=== PATIENT | male | born 1980 | race Two or more races ===

== ENCOUNTER 2018-02-09 07:36 | Emergency (ER) | payer SELFPAY ==
[2018-02-09] MEDS ORDERED: DEXAMETHASONE SOD PHOS INJ 10 MG/1 ML VIAL IM ONE (07:57)
--- NOTE | 2018-02-09 08:00 | ER Document Report ---
HPI - HPI Time Seen by Provider: 02/09/18 07:50 Pain Level: 3 Notes: Patient is a 37-year-old male with no significant past medical history who presents to the ED complaining of subjective fever and a sore throat that started yesterday morning. Patient states that he has been getting over a recent illness with cough and nasal congestion. Patient states that those symptoms have greatly improved and are almost resolved when his sore throat started. Denies any drug allergies. He is still able to eat and drink, but does have a decreased p.o. intake because of the discomfort. He is urinating normally and having normal bowel movements. Denies drug allergies. Patient does admit to smoking. Denies any headache, neck pain, changes in vision/speech/mentation/hearing, hoarseness, drooling, chest pain, palpitations, syncope, shortness of breath, wheeze, dyspnea, abdominal pain, nausea/vomiting/diarrhea, urinary retention, dysuria, hematuria, or rash. - ROS Systems Reviewed and Negative: Yes All other systems reviewed and negative - REPRODUCTIVE Reproductive: DENIES: : Past Medical History - Social History Smoking Status: Current Every Day Smoker Family History: Reviewed & Not Pertinent Vertical Provider Document - CONSTITUTIONAL Agree With Documented VS: Yes Notes: PHYSICAL EXAMINATION: GENERAL: Well-appearing, well-nourished and in no acute distress. A&Ox4. Answers questions appropriately. Moves comfortably w/o notable distress HEAD: Atraumatic, normocephalic. EYES: Pupils equal round and reactive to light, extraocular movements intact, sclera anicteric, conjunctiva are normal. ENT: EAC clear b/l. TM's intact b/l without erythema, fluid, or perforation. Nares patent and with clear discharge. oropharynx mild erythema without exudates. 2+ tonsilar hypertrophy b/l witht erythema and scant exudate. No palatine shift. Uvula midline. No tongue protrusion. No drooling, hoarseness, or airway compromise. Moist mucous membranes. No sinus tenderness. NECK: Normal range of motion, supple without lymphadenopathy. No rigidity/meningismus. LUNGS: Breath sounds clear to auscultation bilaterally and equal. No wheezes rales or rhonchi. No retractions HEART: Regular rate and rhythm without murmurs, rubs, gallops. ABDOMEN: Soft, nontender, nondistended abdomen. No guarding, no rebound. No masses appreciated. Normal bowel sounds present. No CVA tenderness bilaterally. No hepatosplenomegaly. NEUROLOGICAL: Normal speech, normal gait. Normal sensory, motor exams PSYCH: Normal mood, normal affect. SKIN: Warm, Dry, normal turgor, no rashes or lesions noted. - INFECTION CONTROL TRAVEL OUTSIDE OF THE [place] IN LAST 30 DAYS: No Course - Re-evaluation Re-evalutation: 02/09/18 08:30 Patient is an afebrile, well-hydrated, 37-year-old male who presents to the ED with acute strep pharyngitis. Vitals are acceptable without any significant tachycardia, tachypnea, or hypoxia. PE is otherwise unremarkable. Patient is nontoxic-appearing and is able to tolerate p.o. without difficulty. Decadron IM was given. Rapid strep was positive. Lungs are otherwise clear to auscultation bilaterally. No further labs or imaging warranted at this time. Low suspicion for any meningitis, sepsis, peritonsillar/pharyngeal abscess, respiratory compromise, Dylon's, or other emergent systemic condition at this time. Patient is aware this condition can change from initial presentation and he needs to monitor symptoms closely. I will send him home with a prescription for penicillin. Conservative measures otherwise for symptoms. Recheck with your PCM in 3-5 days. Consider consult with ENT. Return to the ED with any worsening/concerning symptoms otherwise as reviewed in discharge. Patient is in agreement. - Vital Signs Vital signs: Temp Pulse Resp BP Pulse Ox 99.8 F 91 16 136/86 H 97 02/09/18 07:42 02/09/18 07:42 02/09/18 07:42 02/09/18 07:42 02/09/18 07:42 Discharge - Discharge Clinical Impression: Acute streptococcal pharyngitis Condition: Stable Disposition: HOME, SELF-CARE Instructions: Penicillin V K ([facility]), Strep Throat ([facility]), Upper Respiratory Illness ([facility]) Additional Instructions: Maintain adequate fluid intake Take meds as directed Salt water gargles, throat sprays, mouthwash rinse, peroxide gargles tylenol/ibuprofen as needed New toothbrush tomorrow evening over the counter cold medication as needed for symptoms F/u: with your PCM in 3-5 days for a recheck Consider consult with ENT for ongoing/worsening symptoms Return to the ED with any fever, worsening pain, chest pain, neck pain/stiffness, shortness of breath, cough, drooling, trouble swallowing/breathing, abdominal pain, n/v/d, rash, or worsening/concerning symptoms otherwise. Prescriptions: Penicillin V Potassium [Penicillin Vk 500 mg Tablet] 500 mg PO TID #30 tablet Forms: Elevated Blood Pressure, Smoking Cessation Education Referrals: KONG FERNANDEZ DO [ASSOCIATE] - Follow up as needed
[2018-02-09 08:58] VITALS: BP 132/88
== END 2018-02-09 08:58 | disposition home or self-care (01) ==
LOC: ER 07:36
DX: J02.0 Streptococcal pharyngitis (principal); F17.210 Nicotine dependence, cigarettes, uncomplicated
CPT/HCPCS: 99283; 96372; 87880; J1100

== ENCOUNTER 2018-02-22 19:39 | Emergency (ER) | payer SELFPAY ==
[2018-02-22 21:22] LABS: ABSOLUTE BASOPHILS # (AUTO) 0.1 10^3/uL (0.0-0.2); ABSOLUTE EOSINOPHILS # (AUTO) 0.4 10^3/uL (0.0-0.6); ABSOLUTE LYMPHOCYTES (AUTO) 2.1 10^3/uL (0.5-4.7); ABSOLUTE MONOCYTES (AUTO) 0.8 10^3/uL (0.1-1.4); ABSOLUTE NEUT (AUTO) 5.2 10^3/uL (1.7-8.2); EOSINOPHILS % (AUTO) 4.5 % (0-6); HEMATOCRIT 37.1 % (37.9-51.0); HEMOGLOBIN 12.9 g/dL (13.5-17.0); LYMPHOCYTES % (AUTO) 24.4 % (13-45); MEAN CORPUSCULAR HEMOGLOBIN 30.7 pg (27.0-33.4); MEAN CORPUSCULAR HGB CONC 34.7 g/dL (32.0-36.0); MEAN CORPUSCULAR VOLUME 89 fl (80-97); MONOCYTES % (AUTO) 9.1 % (3-13); PLATELET COUNT 249 10^3/uL (150-450); RED BLOOD COUNT 4.18 10^6/uL (4.35-5.55); RED CELL DISTRIBUTION WIDTH 13.1 % (11.5-14.0); TOTAL CELLS COUNTED % (AUTO) 100 %; WHITE BLOOD COUNT 8.6 10^3/uL (4.0-10.5)
--- NOTE | 2018-02-22 21:32 | ER Document Report ---
ED General - General Chief Complaint: Chest Wall Pain Stated Complaint: PAINFUL COUGH Time Seen by Provider: 02/22/18 20:57 Notes: Patient is a 37-year-old male that comes to the emergency department for chief complaint of pain in his chest. He states he has had pain started on the left side and also began hurting on the right side since yesterday. He states it is somewhat worse to move, hurts to take a deep breath, hurts if he coughs. He denies any consistent cough. He denies shortness of breath. He denies fever. He does smoke. He denies any daily medications. He states he was treated for strep throat at the end of last month. He denies illness otherwise. Denies personal or family history of cardiac disease. at bedside. TRAVEL OUTSIDE OF THE [place] IN LAST 30 DAYS: No - Related Data Allergies/Adverse Reactions: No Known Allergies Allergy (Unverified 02/09/18 08:06) Past Medical History - General Information source: Patient - Social History Smoking Status: Never Smoker Drug Abuse: None Lives with: Family Family History: Reviewed & Not Pertinent Renal/ Medical History: Denies: Hx Peritoneal Dialysis Surgical Hx: Negative - Immunizations Immunizations up to date: Yes Hx Diphtheria, Pertussis, Tetanus Vaccination: Yes Review of Systems - Review of Systems Constitutional: No symptoms reported EENT: No symptoms reported Cardiovascular: See HPI Respiratory: See HPI Gastrointestinal: No symptoms reported Genitourinary: No symptoms reported Male Genitourinary: No symptoms reported Musculoskeletal: See HPI Skin: No symptoms reported Hematologic/Lymphatic: No symptoms reported Neurological/Psychological: No symptoms reported Physical Exam - Vital signs Vitals: Temp Pulse Resp BP Pulse Ox 98.7 F 72 22 H 126/72 H 97 02/22/18 20:05 02/22/18 20:05 02/22/18 20:05 02/22/18 20:05 02/22/18 20:05 - Notes Notes: GENERAL: Alert, interacts well. No acute distress. HEAD: Normocephalic, atraumatic. EYES: Pupils equal, round, and reactive to light. Extraocular movements intact. ENT: Oral mucosa moist, tongue midline. Oropharynx unremarkable. Airway patent. Nares patent, no nasal septal hematoma, TM's intact. NECK: Full range of motion. Supple. Trachea midline. LUNGS: Clear to auscultation bilaterally, no wheezes, rales, or rhonchi. No respiratory distress. HEART: Regular rate and rhythm. No murmur ABDOMEN: Soft, non-tender. Non-distended. Bowel sounds present in all 4 quadrants. GENITOURINARY: Deferred EXTREMITIES: Moves all 4 extremities spontaneously. No edema, normal radial and dorsalis pedis pulses bilaterally. No cyanosis. BACK: Mild generalized pain over the upper back and shoulders. Full range of motion intact. No cervical, thoracic, lumbar midline tenderness. No saddle anesthesia, normal distal neurovascular exam. NEUROLOGICAL: Alert and oriented x3. Normal speech. [cranial nerves II through XII grossly intact]. PSYCH: Normal affect, normal mood. SKIN: Warm, dry, normal turgor. No rashes or lesions noted. Course - Re-evaluation Re-evalutation: Patient does not have specific chest wall pain when I palpate, however he does have wall pain and pain in his shoulders when he moves. Chest x-ray unremarkable. EKG sinus rhythm with no T wave inversions or ST segment changes in consecutive leads. CBC unremarkable. Chemistry unremarkable. Troponin is negative despite several days of symptoms. Patient has pain with inspiration which is mild. Suspect pleurisy and muscular skeletal pain. Unremarkable vital signs. No hypoxia, tachypnea, or signs of distress. Very vague symptoms on reevaluation. Very low suspicion of ACS, PE, dissection, or other emergent process. I discussed the results with patient in detail. After discussion of results decision was made to proceed with treatment of dexamethasone here for his symptoms of pleurisy, after this he will continue on [id number] medications at home and take a muscle relaxer. Discussed follow-up and return precautions with patient. Patient states understanding and agreement with plan. - Vital Signs Vital signs: Temp Pulse Resp BP Pulse Ox 98.7 F 72 27 H 120/76 98 02/22/18 20:05 02/22/18 20:05 02/22/18 22:29 02/22/18 22:29 02/22/18 22:29 - Laboratory Result Diagrams: 02/22/18 21:11 02/22/18 21:11 Laboratory results interpreted by me: 02/22/18 21:11 RBC 4.18 L Hgb 12.9 L Hct 37.1 L Discharge - Discharge Clinical Impression: Chest wall pain, Inspiratory pain Condition: Stable Disposition: HOME, SELF-CARE Additional Instructions: Your workup does not show any concerning findings at this time. Your evaluation is most consistent with post musculoskeletal strain and probable pleurisy as discussed. You have been medicated initially for this. Continue treatment at home with the muscle relaxer as prescribed if needed, you can also take [id number] medications. Drink plenty fluids and rest. Symptoms should gradually resolve with time. Follow-up with primary care. Return for any concerning symptoms including difficulty breathing, fever, severe pain, or any other concerning or worsening symptoms. Prescriptions: Methocarbamol [Robaxin 750 mg Tablet] 750 mg PO Q6 #20 tablet Forms: Return to Work
[2018-02-22 21:38] LABS: ANION GAP 9 (5-19); BLOOD UREA NITROGEN 9 mg/dL (7-20); CALCIUM 9.1 mg/dL (8.4-10.2); CARBON DIOXIDE 25 mmol/L (22-30); CHLORIDE 106 mmol/L (98-107); GLUCOSE 105 mg/dL (75-110); SODIUM 139.7 mmol/L (137-145)
--- NOTE | 2018-02-22 21:52 | RADIOLOGY REPORT (SQ) ---
XR CHEST 2 VIEWS HISTORY: Chest pain. COMPARISON: None. FINDINGS: The cardiomediastinal silhouette is unremarkable. The lungs are clear. No pleural effusion or pneumothorax is identified. IMPRESSION: No acute cardiopulmonary abnormality.
[2018-02-22] MEDS ORDERED: DEXAMETHASONE SOD PHOS INJ 10 MG/1 ML VIAL IV ONE (21:55)
--- NOTE | 2018-02-22 22:13 | EKG REPORT ---
SEVERITY:- NORMAL ECG - SINUS RHYTHM : Confirmed by: Karyna Lees MD 22-Feb-2018 22:12:52
[2018-02-22 22:31] VITALS: BP 120/76
== END 2018-02-22 22:33 | disposition home or self-care (01) ==
LOC: ER 19:39
DX: R07.89 Other chest pain (principal); R07.1 Chest pain on breathing; M25.511 Pain in right shoulder; M25.512 Pain in left shoulder
CPT/HCPCS: 93005; 99285; 96374; 36415; 85025; 80048; 84484; 71046; 93010; J1100

== ENCOUNTER 2018-04-23 08:03 | Emergency (ER) | payer SELFPAY ==
[2018-04-23 08:08] VITALS: BP 145/83
[2018-04-23] MEDS ORDERED: SULFAMETHOXAZOLE/TRIMETHOPRIM 800-160 MG TABLET PO ONE (08:31)
--- NOTE | 2018-04-23 08:31 | ER Document Report ---
ED General - General Chief Complaint: Abscess Stated Complaint: INSECT BITE Time Seen by Provider: 04/23/18 08:16 TRAVEL OUTSIDE OF THE [place] IN LAST 30 DAYS: No - HPI Patient complains to provider of: Possible abscess right hip Notes: Patient coming in for an area of redness and swelling ongoing for the last 3-4 days. Patient states he may been bit by a bug. Patient denies any drainage to the ear but states very painful concern for possible abscess. Patient denies history of MRSA. Patient denies any fever chills nausea vomiting diarrhea resting comfortably upon my evaluation. - Related Data Allergies/Adverse Reactions: No Known Allergies Allergy (Verified 04/23/18 08:03) Past Medical History - Social History Smoking Status: Current Every Day Smoker Chew tobacco use (# tins/day): No Frequency of alcohol use: Occasional Drug Abuse: Marijuana Family History: Reviewed & Not Pertinent Patient has suicidal ideation: No Patient has homicidal ideation: No Renal/ Medical History: Denies: Hx Peritoneal Dialysis - Immunizations Immunizations up to date: Yes Hx Diphtheria, Pertussis, Tetanus Vaccination: Yes Review of Systems - Review of Systems Constitutional: No symptoms reported EENT: No symptoms reported Cardiovascular: No symptoms reported Respiratory: No symptoms reported Gastrointestinal: No symptoms reported Genitourinary: No symptoms reported Male Genitourinary: No symptoms reported Musculoskeletal: No symptoms reported Skin: Other - Possible abscess Hematologic/Lymphatic: No symptoms reported Neurological/Psychological: No symptoms reported Physical Exam - Vital signs Vitals: Temp Pulse Resp BP Pulse Ox 98.8 F 71 18 145/83 H 97 04/23/18 08:07 04/23/18 08:07 04/23/18 08:07 04/23/18 08:07 04/23/18 08:07 Interpretation: Normal - General General appearance: Appears well, Alert - HEENT Head: Normocephalic, Atraumatic Eyes: Normal Pupils: PERRL - Respiratory Respiratory status: No respiratory distress Chest status: Nontender Breath sounds: Normal Chest palpation: Normal - Cardiovascular Rhythm: Regular Heart sounds: Normal auscultation Murmur: No - Abdominal Inspection: Normal Distension: No distension Bowel sounds: Normal Tenderness: Nontender Organomegaly: No organomegaly - Back Back: Normal, Nontender - Extremities General upper extremity: Normal inspection, Nontender, Normal color, Normal ROM, Normal temperature General lower extremity: Normal color, Normal ROM, Normal temperature, Normal weight bearing. No: Normal inspection - Left hip unaffected on the area of the greater trochanter on the right hip patient has erythema and induration approximately an area 5 cm x 4 cm with a scab in the middle from what would like to be site of previous drainage. Bedside ultrasound does not show fluid collection or phlegmon that requires I&D., Carlos's sign - Neurological Neuro grossly intact: Yes Cognition: Normal Orientation: AAOx4 Sancho Coma Scale Eye Opening: Spontaneous [place] Coma Scale Verbal: Oriented [place] Coma Scale Motor: Obeys Commands [place] Coma Scale Total: 15 Speech: Normal Motor strength normal: LUE, RUE, LLE, RLE Sensory: Normal - Psychological Associated symptoms: Normal affect, Normal mood - Skin Skin Temperature: Warm Skin Moisture: Dry Skin Color: Normal Course - Re-evaluation Re-evalutation: 04/23/18 12:54 Patient list of had an abscess that was drained now with localized cellulitis. Patient will be placed on Bactrim for antibiotic coverage the area was marked by the nursing staff patient was given warning signs to return to the ER patient will be discharged home. - Vital Signs Vital signs: Temp Pulse Resp BP Pulse Ox 98.8 F 71 18 145/83 H 97 04/23/18 08:07 04/23/18 08:07 04/23/18 08:07 04/23/18 08:07 04/23/18 08:07 Discharge - Discharge Clinical Impression: Abscess and cellulitis of gluteal region Condition: Good Disposition: HOME, SELF-CARE Instructions: Abscess ([facility]), MRSA Cellulitis ([facility]), Trimethoprim-Sulfa ([facility]) Additional Instructions: Your examination shows signs of an abscess that has already drained causing a skin infection around the abscess. Please take antibiotic as prescribed return to the ER symptoms worsen follow-up with your primary care physician. Please take Tylenol Motrin for pain control. May also put warm packs on the area Prescriptions: Sulfamethoxazole/Trimethoprim [Bactrim Ds Tablet] 1 each PO BID #20 tablet Forms: Return to Work
== END 2018-04-23 08:48 | disposition home or self-care (01) ==
LOC: ER 08:03
DX: L02.415 Cutaneous abscess of right lower limb (principal); L03.115 Cellulitis of right lower limb; F17.200 Nicotine dependence, unspecified, uncomplicated
CPT/HCPCS: 99282

== ENCOUNTER 2019-05-13 10:39 | Emergency (ER) | payer SELFPAY ==
[2019-05-13] MEDS ORDERED: LIDOCAINE 1%/EPINEPHRINE INJ 20 ML VIAL INJ ONE ×2 (10:49)
[2019-05-13] MEDS ORDERED: HYDROCODONE/ACETAMINOPHEN 5-325 MG TABLET PO ONE (10:49)
[2019-05-13] MEDS ORDERED: SULFAMETHOXAZOLE/TRIMETHOPRIM 800-160 MG TABLET PO ONE (10:49)
--- NOTE | 2019-05-13 10:52 | ER Document Report ---
ED General - General Chief Complaint: Abscess Stated Complaint: ABSCESS/TAILBONE Notes: Patient is a 38-year-old male with no significant past medical history who presents to the emergency department with a chief complaint of abscess formation to the tailbone area that began about 3 days ago. He states the area is tender to the touch and swollen. Denies any drainage. States he has had these in the past in different areas, never in the same area. He denies any associated fever, nausea, vomiting, diarrhea, chills or night sweats. No abdominal pain. TRAVEL OUTSIDE OF THE [place] IN LAST 30 DAYS: No - Related Data Allergies/Adverse Reactions: No Known Allergies Allergy (Verified 04/23/18 08:03) Past Medical History - Social History Smoking Status: Current Every Day Smoker Family History: Reviewed & Not Pertinent Patient has suicidal ideation: No Patient has homicidal ideation: No Renal/ Medical History: Denies: Hx Peritoneal Dialysis - Immunizations Immunizations up to date: Yes Hx Diphtheria, Pertussis, Tetanus Vaccination: Yes Review of Systems - Review of Systems Skin: Lesions -: Yes All other systems reviewed and negative Physical Exam - Vital signs Vitals: Temp Pulse Resp BP Pulse Ox 97.8 F 83 18 141/79 H 97 05/13/19 10:42 05/13/19 10:42 05/13/19 10:42 05/13/19 10:42 05/13/19 10:42 - General General appearance: Appears well, Alert - Respiratory Respiratory status: No respiratory distress Chest status: Nontender Breath sounds: Normal Chest palpation: Normal - Cardiovascular Rhythm: Regular Heart sounds: Normal auscultation Murmur: No - Neurological Neuro grossly intact: Yes Cognition: Normal Orientation: AAOx4 - Psychological Associated symptoms: Normal affect, Normal mood - Skin Skin Temperature: Warm Skin Moisture: Dry Skin Color: Other - Abscess formation to the proximal gluteal cleft there is approximately 2.5 cm in diameter and elevated 0.5 cm with mild fluctuance. Some minimal overlying erythema. No expanding cellulitis or proximal streaking. No drainage. Area is tender to palpation. No extension into the gluteal crease or perianal area Course - Re-evaluation Re-evalutation: 05/13/19 11:29 Patient tolerated I&D well. Packing was placed. He will be placed on Bactrim given a short course of pain medication. Counseled him regarding return for follow-up here or with his doctor in 48 hours for packing removal and wound recheck. Discussed the importance of outpatient follow-up and advised to return here or any ER immediately with any new, persistent or worsening symptoms. He verbalized understood and agreed. - Vital Signs Vital signs: Temp Pulse Resp BP Pulse Ox 97.8 F 83 18 141/79 H 97 05/13/19 10:42 05/13/19 10:42 05/13/19 10:42 05/13/19 10:42 05/13/19 10:42 Procedures - Incision and Drainage Buttock Time completed: 11:28 Type: Complex Anesthetic type: 1% Lidocaine w/epi mL's of anesthetic: 8 Blade size: 11 I&D procedure: Betadine prep applied, Iodoform packing placed Incision Method: Incision made by scalpel Amount/type of drainage: Purulent moderate Notes: 05/13/19 11:29 Patient tolerated well Discharge - Discharge Clinical Impression: Abscess Condition: Stable Disposition: HOME, SELF-CARE Instructions: Abscess ([facility]) Additional Instructions: Follow-up with your regular doctor in 2 to 3 days for wound recheck and packing removal. Return here or any ER immediately with any new, persistent or worsening symptoms. Prescriptions: Sulfamethoxazole/Trimethoprim [Bactrim Ds Tablet] 1 each PO BID #19 tablet Hydrocodone/Acetaminophen [[address] 5-325 mg Tablet] 1 tab PO Q6 PRN #12 tablet PRN Reason:
[2019-05-13 11:46] VITALS: BP 135/66
== END 2019-05-13 11:43 | disposition home or self-care (01) ==
LOC: ER 10:39
PROC: 0H98XZZ Drainage of Buttock Skin, External Approach (ICD-10-PCS; principal; 2019-05-13)
DX: L02.31 Cutaneous abscess of buttock (principal); F17.200 Nicotine dependence, unspecified, uncomplicated
CPT/HCPCS: 99283; 10060; J3490